=== PATIENT | female | born 1960 | race Caucasian/White ===

== ENCOUNTER → 2022-10-01 | Outpatient (CLI) | payer OTHER, MEDICAID ==
--- NOTE | 2022-10-01 15:55 | Diagnostic Imaging Report ---
INDICATION: PAIN IN RT KNEE COMPARISON: None. FINDINGS: Multiple radiographic views of the right knee joint demonstrate no acute fracture or dislocation. No focal osseous lesions are seen. No significant joint effusion is seen. Moderate osteoarthritic changes are noted and consistent of tricompartmental joint space narrowing with osteophyte formations. There is also mild lateral subluxation of the proximal tibia in respect to the distal femur. The surrounding soft tissue structures are unremarkable. There are no radiopaque foreign bodies. IMPRESSION: 1. No acute fractures or dislocations of the right knee joint. 2. Moderate osteoarthritic changes. Dictated by: Dictated on workstation # [id number]
== END ==
LOC: ORTHO 10:05
PROVIDERS: ATTEND Orthopaedic Surgery
DX: M17.11 Unilateral primary osteoarthritis, right knee (principal)
CPT/HCPCS: 73564; G0463; 99213

== ENCOUNTER 2022-10-22 07:10 | Outpatient (CLI) | payer OTHER, MEDICAID ==
[~2022-10-22] VITALS: Ht 170.2 cm; Wt 118.2 kg
--- NOTE | 2022-10-22 09:07 | Diagnostic Imaging Report ---
CLINICAL INDICATION: Preop chest x-ray. Total knee replacement. EXAM: Chest x-ray PA and lateral views. COMPARISON: None. FINDINGS: Lungs/pleura: Lungs are clear. There is no pneumothorax. There is no pleural effusion. Mediastinum: Unremarkable. Pulmonary vasculature: Unremarkable. Heart: Unremarkable. Bones/extrathoracic soft tissue: There are degenerative spurs involving the thoracic spine. IMPRESSION: There is no radiographic evidence of acute cardiopulmonary process. Dictated by: Dictated on workstation # [id number]
[2022-10-22 09:52] LABS: BASOPHILS % (AUTO) 1 % (0-10); EOSINOPHILS # (AUTO) 0.3 10^3/uL (0.0-0.3); EOSINOPHILS % (AUTO) 3 % (0-10); HEMATOCRIT 43 % (35-52); HEMOGLOBIN 14.6 g/dL (11.5-16.0); LYMPHOCYTES % (AUTO) 25 % (12-44); MEAN CORPUSCULAR HEMOGLOBIN 33 pg (25-34); MEAN CORPUSCULAR HGB CONC 34 g/dL (32-36); MEAN CORPUSCULAR VOLUME 96 fL (80-99); MEAN PLATELET VOLUME 9.8 fL (9.0-12.2); MONOCYTES # (AUTO) 0.7 10^3/uL (0.0-1.0); MONOCYTES % (AUTO) 9 % (0-12); NEUTROPHILS # (AUTO) 5.1 10^3/uL (1.8-7.8); NEUTROPHILS % (AUTO) 62 % (42-75); PLATELET COUNT 204 10^3/uL (130-400); WHITE BLOOD COUNT 8.2 10^3/uL (4.3-11.0)
[2022-10-22 09:54] LABS: BILIRUBIN,URINE NEGATIVE (NEGATIVE); CLARITY,URINE CLEAR; COLOR,URINE YELLOW; GLUCOSE, URINE (UA) NEGATIVE (NEGATIVE); KETONES,URINE NEGATIVE (NEGATIVE); LEUKOCYTE ESTERASE ,URINE TRACE (NEGATIVE); NITRITE,URINE NEGATIVE (NEGATIVE); PROTEIN,URINE NEGATIVE (NEGATIVE)
[2022-10-22 10:05] LABS: BACTERIA,URINE TRACE /HPF; SQUAMOUS EPITHELIAL CELL,UR 0-2 /HPF; WBC,URINE 0-2 /HPF
[2022-10-22] MEDS ORDERED: CETI5TAB6 PO (10:07)
[2022-10-22] MEDS ORDERED: METH2.5T PO (10:07)
[2022-10-22] MEDS ORDERED: TOCI162D SQ (10:07)
[2022-10-22] MEDS ORDERED: METF-478 PO (10:07)
[2022-10-22] MEDS ORDERED: MELO15TA39 PO (10:07)
[2022-10-22] MEDS ORDERED: UBID1CAP53 PO (10:07)
[2022-10-22] MEDS ORDERED: DOCU-163 PO (10:07)
[2022-10-22] MEDS ORDERED: LOSA25TA41 PO (10:07)
[2022-10-22] MEDS ORDERED: OMEG100032 PO (10:07)
[2022-10-22] MEDS ORDERED: OMEP20CA18 PO (10:07)
[2022-10-22 10:08] VITALS: BP 132/6
[2022-10-22 10:15] LABS: POTASSIUM 4.1 MMOL/L (3.6-5.0)
[2022-10-22 10:20] LABS: CREATININE SERUM 0.71 MG/DL (0.60-1.30)
== END 2022-10-22 10:15 ==
LOC: PREOP 07:10
PROVIDERS: ATTEND Orthopaedic Surgery
DX: M17.11 Unilateral primary osteoarthritis, right knee (principal)
CPT/HCPCS: 36415; 71046; 80048; 81000; 85025; 87081; 93005

== ENCOUNTER → 2022-10-22 | Outpatient (CLI) | payer OTHER, MEDICAID ==
[~2022-10-22] MED LIST: CETI5TAB6 PO; DOCU-163 PO; LOSA25TA41 PO; MELO15TA39 PO; METF-478 PO; METH2.5T PO; OMEG100032 PO; OMEP20CA18 PO; TOCI162D SQ; UBID1CAP53 PO
== END ==
LOC: ORTHO 08:18
PROVIDERS: ATTEND Orthopaedic Surgery
DX: M17.11 Unilateral primary osteoarthritis, right knee (principal)

== ENCOUNTER 2022-11-03 07:43 | Day surgery (SDC) | payer OTHER, MEDICAID ==
[~2022-11-03] VITALS: Ht 170.2 cm; Wt 118.2 kg
[2022-11-03] VITALS (11 sets, daily range): BP systolic 126–170; BP diastolic 60–90
[2022-11-03] MEDS ORDERED: ceFAZolin INJECTION 2,000 MG in NS (IVPB) 50 ML IV ONE (08:00)
[2022-11-03] MEDS ORDERED: SODIUM CHLORIDE 0.9% IRRIGATIO 150 ML, TRANEXAMIC ACID INJECTION 3,000 MG IR ONE ×2 (08:00)
[2022-11-03] MEDS: LACTATED RINGERS 1,000 ML IV PRN ×3 (08:33→13:16)
[2022-11-03] MEDS ORDERED: fentaNYL INJ 100 MCG/2 ML AMP ONE (09:23)
[2022-11-03] MEDS ORDERED: MIDAZOLAM 2 MG/2 ML (VERSED) VIAL ONE (09:23)
[2022-11-03] MEDS ORDERED: LIDOCAINE PF 2% 5 ML (XYLOCAINE) VIAL ONE (09:23)
[2022-11-03] MEDS ORDERED: ROPIVACAINE 5MG/ML 30ML VIAL ONE ×2 (09:23→11:08)
[2022-11-03] MEDS ORDERED: proPOfol 200 MG/20 ML (DIPRIVAN) VIAL IV ONE (09:23)
[2022-11-03] MEDS ORDERED: TRANEXAMIC ACID 100 MG/ML 10 ML INJECTION ONE (10:45)
[2022-11-03] MEDS ORDERED: ROCURONIUM 50 MG/5 ML (ZEMURON) VIAL IV ONE ×2 (11:03→12:08)
[2022-11-03] MEDS ORDERED: ONDANSETRON 4 MG/2 ML (SDV) Z0FRAN ONE (11:08)
[2022-11-03] MEDS ORDERED: HYDROCORTISONE 100 MG/2 ML (Solu-CORTEF) VIAL ONE (11:09)
[2022-11-03] MEDS ORDERED: HYDROmorphone 2 MG/ML VIAL (DILAUDID) ONE ×2 (11:09→13:41)
[2022-11-03] MEDS ORDERED: KETOROLAC 30 MG/ML VIAL ONE (13:12)
[2022-11-03] MEDS ORDERED: SEVOFLURANE (ULTANE) 15 ML INHAL SOLN ONE (13:20)
--- NOTE | 2022-11-03 13:38 | Operative Report - Ortho ---
Operative Report Surgeon (s)/Residential Youth Counselor (s) Surgeon BETTY PORTILLO MD Residential Youth Counselor n/a Pre-Operative Diagnosis Right Knee Primary Osteoarthritis Post-Operative Diagnosis same Operative Report Date of Procedure: Nov 03, 2022 Name of Procedure Performed: Right Total Knee Arthroplasty Description & Findings After obtaining informed consent and marking the patient in the preoperative holding area, the patient did receive IV antibiotics. Patient was taken to the operating room and anesthesia was induced. Surgical timeout was taken. The right lower extremity was prepped and draped in the usual sterile fashion. Incision was made and carried down to fascia. Arthrotomy was performed on the medial side of the patella. Patella was retracted laterally and knee was flexed. Found to have circumferential osteophtye around the distal femur as well as exposed bone in the medial compartment. Hole was made in the distal femur for the intramedullary distal femoral cutting guide. Resection was made then the femur was sized as a 3. 4-in-1 block for a size [address]. Anterior cut was made and there was no notch. Posterior cut was made followed by the chamfers. Box cut was performed. Lug holes were drilled. Attention was turned to the tibial side, extramedullary tibial guide was put into place and aligned with the tibial crest. It was set to take 2 mm off of the affected lateral side. Drop digna was used to confirm alignment. Resection was made and was parallel to the joint line. Tibial bone block was removed. Lamina med surg rn was put into place and the menisci and posterior osteophytes were removed. The knee was trialed with a size 3 femur and a size 3 tibia with a 9 mm poly trial. It was found to come out to less than full extension and flexed beyond 120 degrees. It was stable to varus and valgus stress throughout its range of motion. This was not accepted. Distal femoral resection was performed again to remove an additional 2 mm and the chamfers were recut. Knee was once again trialed and found to be in full extension with the other parameters remaining the same. Knee was brought out into extension and the patella was measured at less than 20 mm of thickness. Osteophytes were removed from around the perimeter of the patella. Trial implants were removed. Tibial tray was pinned and punched. The cut bone surfaces were lavaged with pulsatile normal saline. Implants were opened and assembled on the back table. Cement was mixed. Cement was applied to the cut bone surface as well as the implant surface. A size 3 tibial component was impacted into placed and excess cement was removed using a [place]. A size 3 femoral component was impacted into place and excess cement was removed using a [place]. Tibial tray was lavaged with saline. A 9 mm thick polyethylene component was locked into placed and the locking mechanism was checked. Knee was brought into extension. The knee was irrigated with normal saline. Irrigation was removed and tranexamic acid was placed. Dilute betadine soak was performed and the knee was irrigated. Once the cement had set, the knee was once again trialed; found to come to full extension, flexed beyond 120 degrees, and was stable to varus and valgus stress. Further tranexamic acid was applied for hemostasis. Tourniquet was dropped and electrocautery was used for further hemostasis. Fascial layer was closed with #2 Stratafix. The subcutaneous layer was closed with 2-0 Vicryl. The skin was closed with carrie. Wound was dressed with xeroform, 4x4s, ABD, webril, and NHUNG wrap. Patient tolerated the procedure well and was stable to the recovery r oom. Anesthesia Type General plus Regional Estimated Blood Loss ~150 mL Specimen(s) collected/removed None BETTY PORTILLO MD Nov 03, 2022 13:38
[2022-11-03] MEDS ORDERED: ONDANSETRON 4 MG/2 ML (SDV) Z0FRAN IVP PRN (13:45)
[2022-11-03] MEDS ORDERED: morphine INJ 4 MG/ML 1 ML (VIAL/SYRINGE) IVP PRN (13:45)
[2022-11-03] MEDS ORDERED: MILK OF MAGNESIA 400 MG/5 ML 30 ML UDC PO PRN (13:45)
[2022-11-03] MEDS ORDERED: BISACODYL 5 MG (DULCOLAX) TABLET PO PRN (13:45)
[2022-11-03] MEDS ORDERED: HYDROmorphone 2 MG/ML VIAL (DILAUDID) IV ONE (13:45)
--- NOTE | 2022-11-03 14:19 | Diagnostic Imaging Report ---
INDICATION: Right knee surgery. FINDINGS: AP and lateral views of the right knee reveal total right knee arthroplasty with moderate amount of gas and fluid in the adjacent tissues. Prosthetic components appear to be well aligned. There is no evidence of acute osseous complication. IMPRESSION: No evidence of immediate complication post recent total right knee arthroplasty. Dictated by: Dictated on workstation # [id number]
--- NOTE | 2022-11-03 15:10 | Physical Therapy Evaluation ---
PT Evaluation-General Medical Diagnosis Admission Date Nov 03, 2022 at 07:48 Medical Diagnosis: right knee osteoarthritis Onset Date: Nov 03, 2022 Therapy Diagnosis Therapy Diagnosis: impaired mobility Precautions Precautions/Isolations: Standard Precautions Weight Bear Status Right Lower Extremity: Right Weight Bearing/Tolerated Left Lower Extremity: Left Full Weight Bearing Referral Physician: Priyanka Reason for Referral: Evaluation/Treatment Medical History Current History s/p elective right TKR Reviewed History: Yes Social History Home: Single Level Current Living Status: Spouse Prior Prior Level of Function SCALE: Activities may be completed with or without assistive devices. 3-Efkogfcrcx-lfhqurs completes the activity by him/herself with no assistance from a helper. 5-Set-up or Clean-up Assistance-helper sets up or cleans up; patient completes activity. [place] assists only prior to or following the activity. 4-Supervision or Touching Assistance-helper provides verbal cues and/or touching/steadying and/or contact guard assistance as patient completes activity. Assistance may be provided throughout the activity or intermittently. 3-Partial/Moderate Assistance-helper does LESS THAN HALF the effort. [place] li fts, holds or supports trunk or limbs, but provides less than half the effort. 2-Substantial/Maximal Assistance-helper does MORE THAN HALF the effort. [place] lifts or holds trunk or limbs and provides more than half the effort. 0-Accspqekw-oaoyhv does ALL the effort. Patient does none of the effort to complete the activity. Or, the assistance of 2 or more helpers is required for the patient to complete the activity. If activity was not attempted, code reason: 7-Patient Refused. 9-Not Applicable-not attempted and the patient did not perform the activity before the current illness, exacerbation or injury. 10-Not Attempted due to Environmental Limitations-(lack of equipment, weather restraints, etc.). 88-Not Attempted due to Medical Conditions or Safety Concerns. Bed Mobility: 6 Transfers (B,C,W/C): 6 Gait: 6 Stairs: 6 Indoor Mobility (Ambulation): Independent Stairs: Independent Prior Devices Use: None PT Evaluation-Current Subjective Patient agrees to PT. Pain Numeric Pain Scale: 5-Moderate Pain Location: Right Location Body Site: Knee Pain Description: Acute Objective Patient Orientation: Normal For Age Attachments: [place]go Catheter, Polar Pack, IV ROM/Strength ROM Lower Extremities right knee flexion 60 degrees/10 degrees extension left LE WFL Strength Lower Extremities left LE 4/5 grossly;right LE 3/5 grossly Integumentary/Posture Bladder Incontinence: Hidalgo Cath Posture WFL Neuromuscular (Tone, Coordination, Reflexes) grossly intact Sensory Vision: Functional Hearing: Functional Transfers Sit to Lying (QC): 3 Lying to Sitting/Side of Bed(Q: 3 Sit to Stand (QC): 88 Gait Does the Patient Walk?: No and Walking Goal IS indicated Balance Sitting Static: Fair Sitting Dynamic: Fair Assessment/Needs Patient became nauseated during PT and vomited. Patient sat EOB for a few mi nutes then returned with needs met. PT to increase activity as tolerated by patient. Rehab Potential: Fair PT Fdc Goals Marketing Writer Goals PT Marketing Writer Goals Time Frame: Nov 08, 2022 Roll Left & Right (QC): 6 Sit to Lying (QC): 6 Lying-Sitting on Side/Bed(QC): 6 Sit to Stand (QC): 6 Chair/Seq-kk-Dffzh Xfer(QC): 6 Toilet Transfer (QC): 6 Walk 10 feet (QC): 6 Walk 50ft with 2 Turns (QC): 6 Walk 150 ft (QC): 6 PT Plan Problem List Problem List: Activity Tolerance, Balance, Gait, Transfer, Bed Mobility, ROM Treatment/Plan Treatment Plan: Continue Plan of Care Treatment Plan: Bed Mobility, Education, Functional Activity Deisi, Functional Strength, Gait, Safety, Therapeutic Exercise, Transfers Treatment Duration: Nov 08, 2022 Frequency: 11 times per week Estimated Hrs Per Day: .5 hour per day Patient and/or Family Agrees t: Yes Time Time In: 1445 Time Out: 1502 DATE: Nov 03, 2022 Total Billed Treatment Time: 17 Total Billed Treatment 1 visit [facility] 17 min CHEY MCHUGH PT Nov 03, 2022 15:10
[2022-11-03] MEDS: NS IV 1000 ML 1,000 ML IV SCH (15:55)
[2022-11-03] MEDS: ASPIRIN E.C. 81 MG (ECOTRIN) TAB PO SCH (17:05)
--- NOTE | 2022-11-03 18:01 | Consultation ---
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 Currently she is doing better with her pain and nausea has passed. I have reviewed her home meds. She brought her CPAP machine to use. We will monitor O2 and BP closely. Source: patient, RN/MD Exam Limitations: no limitations Date Seen 11/03/22 Attending Physician No,Local Physician PCP Admitting Physician: Damon Mathew MD Attending Physician: Damon Mathew MD Referring Physician Date of Admission Nov 03, 2022 at 07:48 Home Medications & Allergies Home Medications Reviewed patient Home Medication Reconciliation performed by pharmacy medication reconciliations survey and mapping technician and/or nursing. Patients Allergies have been reviewed. Allergies Allergies Coded Allergies Sulfa (Sulfonamide Antibiotics) (Unverified Allergy, Severe, Rash, 10/22/22) adhesive tape (Unverified Allergy, Intermediate, Rash, 10/22/22) Past Yfdpbha-Zublla-Xhdjjs Hx Past Med/Social Hx: Reviewed Nursing Past Med/Soc Hx, Reviewed and Corrections made Patient Social History Marrital Status: Employed/Student: retired Alcohol Use: Rarely Uses Recreational Drug Use: No Smoking Status: Never a Smoker 2nd Hand Smoke Exposure: No Recent Foreign Travel: No Contact w/other who traveled: No Recent Hopitalizations: No Immunizations Up To Date Date of Influenza Vaccine: Aug 22, 2022 Seasonal Allergies Seasonal Allergies: Yes Past Medical History Surgeries: Breast, Gallbladder, Orthopedic, Tonsillectomy Respiratory: Sleep Apnea Currently Using CPAP: Yes Currently Using BIPAP: No Cardiac: High Cholesterol, Hypertension Sexually Transmitted Disease: No HIV/AIDS: No Female Reproductive Disorders: Denies Hysterectomy Gastrointestinal: Gastroesophageal Reflux Musculoskeletal: Arthritis Cancer: Breast What Type of Treatment Did You: Chemotherapy, Surgical Intervention Psychosocial: Anxiety History of Blood Disorders: Yes Review of Systems Constitutional: see HPI, malaise, weakness EENTM: no symptoms reported Respiratory: no symptoms reported Cardiovascular: no symptoms reported Gastrointestinal: nausea Genitourinary: no symptoms reported Musculoskeletal: back pain, joint pain Skin: no symptoms reported Psychiatric/Neurological: No Symptoms Reported All Other Systems Reviewed Negative Unless Noted: Yes Physical Exam Physical Exam Vital Signs Vital Signs - First Documented 11/03/22 07:50 Temp 36.7 Pulse 116 Resp 22 B/P (MAP) 146/71 (96) O2 Delivery Room Air Capillary Refill : Less Than 3 Seconds Height, Weight, BMI Height: '" Weight: lbs. oz. kg; 40.80 BMI Method: General Appearance: No Apparent Distress, WD/WN, Chronically ill, Obese Eyes: Bilateral Eye Normal Inspection, Bilateral Eye PERRL HEENT: PERRL/EOMI, Normal ENT Inspection, Pharynx Normal Neck: Full Range of Motion, Normal Inspection, Non Tender, Supple, Carotid Bruit Respiratory: Chest Non Tender, Lungs Clear, Normal Breath Sounds, No Accessory Muscle Use, No Respiratory Distress Cardiovascular: Regular Rate, Rhythm, No Edema, No Gallop, No JVD, No Murmur, Normal Peripheral Pulses Gastrointestinal: Normal Bowel Sounds, No Organomegaly, No Pulsatile Mass, Non Tender, Soft Back: Normal Inspection, No CVA Tenderness, No Vertebral Tenderness Extremity: Normal Capillary Refill, Normal Inspection, Normal Range of Motion (except right leg), Non Tender, No Calf Tenderness, No Pedal Edema Neurologic/Psychiatric: Alert, Oriented x3, No Motor/Sensory Deficits, Normal Mood/Affect Skin: Normal Color, Warm/Dry Lymphatic: No Adenopathy Results Results/Procedures Labs Patient resulted labs reviewed. Assessment/Plan Assessment and Plan Assess & Plan/Chief Complaint Assessment: s/p right knee replacement POD # 0 Obesity RA LEONIDES on CPAP Plan: Monitor labs O2 monitoring Home CPAP use Diagnosis/Problems Diagnosis/Problems (1) Primary osteoarthritis of right knee MARYBETH TUCKER DO Nov 03, 2022 18:01
[2022-11-03] MEDS ORDERED: ceFAZolin INJECTION 2,000 MG in NS (IVPB) 50 ML IV SCH (21:00)
[2022-11-03] MEDS: DOCUSATE SODIUM 100 MG (COLACE) CAP PO SCH (21:52)
[2022-11-03] MEDS: ceFAZolin INJECTION 2,000 MG in NS (IVPB) 50 ML IV SCH (21:52)
[2022-11-04] MEDS: NS IV 1000 ML 1,000 ML IV SCH ×2 (02:37→02:39)
[2022-11-04 03:43] VITALS: BP 122/79
--- NOTE | 2022-11-04 05:15 | Progress Note ---
Subjective Date Seen by a Provider: Nov 04, 2022 Time Seen by a Provider: 09:00 Subjective/Events-last exam Pt is doing really well Up in chair Pain is pretty well controlled Reviewed meds and labs Review of Systems General: Fatigue Musculoskeletal: leg pain Objective Exam Last Set of Vital Signs Vital Signs Date Time Temp Pulse Resp B/P (MAP) Pulse Ox O2 Delivery O2 Flow Rate FiO2 11/04/22 03:43 36.3 74 20 122/79 (93) 98 Room Air 11/03/22 20:07 2.00 Capillary Refill : Less Than 3 Seconds I&O Intake and Output 11/04/22 00:00 Intake Total 3060 ml Output Total 1150 ml Balance 1910 ml Intake Oral 960 ml IV Total 2100 ml Output Urine Total 1150 ml General: Alert, Oriented X3, Cooperative, No Acute Distress Lungs: Clear to Auscultation, Normal Air Movement Heart: Regular Rate, Normal S1, Normal S2, No Murmurs Psych/Mental Status: Mental Status NL, Mood NL Results Lab Laboratory Tests 11/03/22 08:31: Glucometer 120H Assessment/Plan Assessment/Plan Assess & Plan/Chief Complaint Assessment: s/p right knee replacement POD # 1 Obesity RA LEONIDES on CPAP Plan: Monitor labs O2 monitoring Home CPAP use Diagnosis/Problems Diagnosis/Problems (1) Primary osteoarthritis of right knee MARYBETH TUCKER DO Nov 04, 2022 05:15
[2022-11-04] MEDS: ceFAZolin INJECTION 2,000 MG in NS (IVPB) 50 ML IV SCH (05:49)
[2022-11-04] MEDS: MULTIVIT W/MINERALS TAB (THERAGRAN M) PO SCH (05:50)
[2022-11-04] MEDS: ACETAMINOPHEN 500 MG TAB (TYLENOL) PO PRN ×2 (05:53→12:54)
[2022-11-04 06:45] LABS: BASOPHILS % (AUTO) 0 % (0-10); EOSINOPHILS % (AUTO) 0 % (0-10); HEMATOCRIT 37 % (35-52); HEMOGLOBIN 12.2 g/dL (11.5-16.0); LYMPHOCYTES # (AUTO) 1.7 10^3/uL (1.0-4.0); LYMPHOCYTES % (AUTO) 11 % (12-44); MEAN CORPUSCULAR HEMOGLOBIN 33 pg (25-34); MEAN CORPUSCULAR HGB CONC 33 g/dL (32-36); MEAN CORPUSCULAR VOLUME 99 fL (80-99); MEAN PLATELET VOLUME 10.6 fL (9.0-12.2); MONOCYTES # (AUTO) 1.3 10^3/uL (0.0-1.0); MONOCYTES % (AUTO) 9 % (0-12); NEUTROPHILS # (AUTO) 12.2 10^3/uL (1.8-7.8); NEUTROPHILS % (AUTO) 80 % (42-75); PLATELET COUNT 172 10^3/uL (130-400); WHITE BLOOD COUNT 15.3 10^3/uL (4.3-11.0)
[2022-11-04 07:12] LABS: BAND NEUTROPHILS 1 %; LYMPHOCYTES % (MANUAL) 11 %; MONOCYTES % (MANUAL) 8 %; NEUTROPHILS % (MANUAL) 78 %
[2022-11-04 07:13] LABS: RBC MORPH NORMAL; REACTIVE LYMPHOCYTES 2 %
[2022-11-04 07:25] VITALS: BP 136/64
[2022-11-04 07:25] LABS: ALBUMIN 3.4 GM/DL (3.2-4.5); BILIRUBIN,TOTAL 0.4 MG/DL (0.1-1.0); CREATININE SERUM 0.65 MG/DL (0.60-1.30); POTASSIUM 3.9 MMOL/L (3.6-5.0); TOTAL PROTEIN 5.4 GM/DL (6.4-8.2)
[2022-11-04] MEDS: DOCUSATE SODIUM 100 MG (COLACE) CAP PO SCH ×2 (08:13→20:56)
[2022-11-04] MEDS: PANTOPRAZOLE 20 MG TABLET (PROTONIX) PO SCH (08:13)
[2022-11-04] MEDS: ASPIRIN E.C. 81 MG (ECOTRIN) TAB PO SCH ×2 (08:13→17:26)
[2022-11-04] MEDS: LOSARTAN 25 MG (COZAAR) TAB PO SCH (08:13)
[2022-11-04] MEDS: MELOXICAM 7.5 MG (MOBIC) TABLET PO SCH (08:14)
[2022-11-04] MEDS ORDERED: OMEPRAZOLE 20 MG (PriLOSEC) CAP NON-FORMULARY PO SCH (09:00)
--- NOTE | 2022-11-04 09:02 | Progress Note - Ortho ---
Progress Note Subjective Date of Exam 11/04/22 Chief Complaint POD #1 R TKA HPI/Events since last exam doing well, pain controlled, good start with therapy Review of Systems - Allergies: Coded Allergies: Sulfa (Sulfonamide Antibiotics) (Unverified Allergy, Severe, Rash, 10/22/22) adhesive tape (Unverified Allergy, Intermediate, Rash, 10/22/22) Home Meds Reported Medications Docusate Sodium (Dulcolax Stool Softener) 100 Mg Capsule, 100 MG PO DAILY, CAP 10/22/22 Cetirizine HCl (Cetirizine HCl) 5 Mg Tablet, 5 MG PO DAILY, TAB 10/22/22 Stevenson-3/Dha/Epa/Fish Oil (Fish Oil 1,000 mg Softgel) 1,000 Mg (120 Mg-180 Mg) Capsule, 1000 MG PO, CAP 10/22/22 Ubidecarenone/Vit E Acetate (Co Q-10 100 mg Softgel) 100 Mg-5 Unit Capsule, 1 EACH PO DAILY, CAP 10/22/22 Omeprazole (Omeprazole) 20 Mg Capsule.dr, 20 MG PO DAILY, CAP 10/22/22 Methotrexate Sodium (Methotrexate) 2.5 Mg Tablet, 2.5 MG PO DAILY, TAB 10/22/22 Metformin HCl (Metformin HCl ER) 500 Mg Tab.er.24, 500 MG PO DAILY, TAB 10/22/22 Meloxicam (Meloxicam) 15 Mg Tablet, 15 MG PO DAILY, TAB 10/22/22 Losartan Potassium (Losartan Potassium) 25 Mg Tablet, 25 MG PO DAILY, TAB 10/22/22 Tocilizumab (Actemra) 162 Mg/0.9 Ml Syringe, 162 MG SQ WEEK, EACH 10/22/22 Objective Exam R Knee: Dressing C/D/I, + DF of ankle, no s/s of DVT Vital Signs Vital Signs Date Time Temp Pulse Resp B/P (MAP) Pulse Ox O2 Delivery O2 Flow Rate FiO2 11/04/22 07:45 Room Air 0.00 11/04/22 07:25 36.4 76 20 136/64 (88) 99 Room Air 11/04/22 03:43 36.3 74 20 122/79 (93) 98 Room Air 11/03/22 23:57 36.2 87 20 126/60 (82) 96 NIV CPAP 11/03/22 21:53 36.9 11/03/22 20:07 36.9 85 16 133/60 (84) 96 Nasal Cannula 2.00 11/03/22 20:07 36.9 85 16 133/60 (84) 96 Nasal Cannula 2.00 11/03/22 20:00 Nasal Cannula 3.00 11/03/22 18:47 98 Nasal Cannula 3.00 11/03/22 16:13 36.1 77 16 139/63 (88) 97 Nasal Cannula 3.00 11/03/22 14:30 36.5 75 20 153/79 (103) 95 Nasal Cannula 3.00 11/03/22 14:30 Nasal Cannula 3.00 11/03/22 14:30 36.6 20 162/82 (108) 94 Nasal Cannula 2.00 11/03/22 14:30 Nasal Cannula 3.00 11/03/22 14:20 20 165/78 (107) 94 Nasal Cannula 3.00 11/03/22 14:15 OxyMask 2.00 11/03/22 14:10 20 165/90 (115) 96 OxyMask 3.00 11/03/22 14:00 OxyMask 5.00 11/03/22 14:00 20 165/90 (115) 96 OxyMask 10.00 11/03/22 13:50 20 153/89 (110) 95 OxyMask 10.00 11/03/22 13:45 OxyMask 10.00 11/03/22 13:40 20 158/80 (106) 95 OxyMask 10.00 11/03/22 13:31 OxyMask 10.00 11/03/22 13:31 36.6 20 170/80 (110) 98 OxyMask 10.00 I & O 11/04/22 07:00 Intake Total 4260 ml Output Total 2050 ml Balance 2210 ml Lab Results Laboratory Tests 11/04/22 05:53: White Blood Count 15.3H, Red Blood Count 3.71L, Hemoglobin 12.2, Hematocrit 37, Mean Corpuscular Volume 99, Mean Corpuscular Hemoglobin 33, Mean Corpuscular Hemoglobin Concent 33, Red Cell Distribution Width 12.8, Platelet Count 172, Mean Platelet Volume 10.6, Immature Granulocyte % (Auto) 1, Neutrophils (%) (Auto) 80H, Lymphocytes (%) (Auto) 11L, Monocytes (%) (Auto) 9, Eosinophils (%) (Auto) 0, Basophils (%) (Auto) 0, Neutrophils # (Auto) 12.2H, Lymphocytes # (Auto) 1.7, Monocytes # (Auto) 1.3H, Eosinophils # (Auto) 0.0, Basophils # (Auto) 0.0, Immature Granulocyte # (Auto) 0.1, Neutrophils % (Manual) 78, Lymphocytes % (Manual) 11, Monocytes % (Manual) 8, Band Neutrophils 1, Reactive Lymphocytes 2, Blood Morphology Comment NORMAL, Sodium Level 140, Potassium Level 3.9, Chloride Level 108H, Carbon Dioxide Level 26, Anion Gap 6, Blood Urea Nitrogen 11, Creatinine 0.65, Estimat Glomerular Filtration Rate 101, BUN/Creatinine Ratio 17, Glucose Level 118H, Calcium Level 8.0L, Corrected Calcium 8.5, Total Bilirubin 0.4, Aspartate Amino Transf (AST/SGOT) 21, Alanine Aminotransferase (ALT/SGPT) 30, Alkaline Phosphatase 48, Total Protein 5.4L, Albumin 3.4 Microbiology 11/03/22 MRSA Screen - Final, Complete MRSA not isolated Imaging 2 postop views of the right knee dated 11/03/22 were reviewed from PACS and demonstrated total knee components to be in good position without complication Assessment and Plan Assessment Right Knee Primary Osteoarthritis s/p R TKA Problem List Right Knee Primary Osteoarthritis s/p R TKA Plan PT/OT DVT Prophylaxis Home with home health tomorrow Final Diagonsis Right Knee Primary Osteoarthritis s/p R TKA Level of the visit: Level 3 (global) BETTY PORTILLO MD Nov 04, 2022 09:02
--- NOTE | 2022-11-04 09:58 | Occupational Therapy Eval ---
OT Evaluation-General/PLF Medical Diagnosis Admission Date Nov 03, 2022 at 07:48 Medical Diagnosis: right knee osteoarthritis/TKR Onset Date: Nov 03, 2022 Therapy Diagnosis Therapy Diagnosis: Decreased ADL skills Precautions Precautions/Isolations: Fall Prevention, Standard Precautions Weight Bear Status Weight Bearing Restriction: Weight Bearing/Tolerated Referral Physician: Priyanka Referral Reason: Activity Tolerance, Self Care, Evaluation/Treatment, Strengthening/ROM Medical History Pertinent Medical History: Rheumatoid Arthritis Additional Medical History Left TKR Current History Elective right knee Reviewed History: Yes Social History Home: Single Level Current Living Status: Spouse ADL-Prior Level of Function SCALE: Activities may be completed with or without assistive devices. 5-Gmsaoaxguq-hrbirfy completes the activity by him/herself with no assistance from a helper. 5-Set-up or Clean-up Assistance-helper sets up or cleans up; patient completes activity. [place] assists only prior to or following the activity. 4-Supervision or Touching Assistance-helper provides verbal cues and/or touching/steadying and/or contact guard assistance as patient completes activity. Assistance may be provided throughout the activity or intermittently. 3-Partial/Moderate Assistance-helper does LESS THAN HALF the effort. [place] lifts, holds or supports trunk or limbs, but provides less than half the effort. 2-Substantial/Maximal Assistance-helper does MORE THAN HALF the effort. [place] lifts or holds trunk or limbs and provides more than half the effort. 7-Sexrkhtrp-alzkig does ALL the effort. Patient does none of the effort to complete the activity. Or, the assistance of 2 or more helpers is required for the patient to complete the activity. If activity was not attempted, code reason: 7-Patient Refused. 9-Not Applicable-not attempted and the patient did not perform the activity before the current illness, exacerbation or injury. 10-Not Attempted due to Environmental Limitations-(lack of equipment, weather restraints, etc.). 88-Not Attempted due to Medical Conditions or Safety Concerns. ADL PLOF Comments Pt. fully independent with daily skills. Does not use AE. Self Care: Independent Functional Cognition: Independent DME/Equipment: Bath Chair, Shower, Sock Aid DME/Equipment Comments Pt. has a shower chair, walker, and sock aide from prior knee surgery. 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 indicates that her knee is stiff with movement, but does not state a pain level. Appearance Pt. up in chair. Alert and oriented. Mental Status/Objective Patient Orientation: Person, Place, Time, Situation Attachments: IV Current Glasses/Contacts: Yes Upper Extremity ROM WFL ADL-Treatment Eating (QC): 6 (per pt.) Oral Hygiene (QC): 5 (Set up at sink in bathroom. Pt. stood to cleanse and reapply dentures.) Toileting Hygiene (QC): 6 (Pt. able to toilet self independently.) Other Treatments OT order received, chart reviewed. Spoke with pt. in depth. Pt. had other knee completed and has equipment at home. She has assist as needed from her spouse and granddaughter. Pt. stood from chair with SBA and ambulated into bathroom. OT assisted due to IV, but pt. could have done so by herself. She was able to toilet and happy to urinate, as she had had catheter removed. Pt. transferred from toilet with independence and stood at sink to wash hands and dentures. Pt. returned to chair. All needs met. Pt. states that she is aware of AE and possible needs. She has sock aide at home and assist as needed. Did not want to practice at this time. No further OT needed at this time. Education OT Patient Education: Correct positioning, Modified ADL techniques, Progress toward Goal/Update tx plan, Purpose of tx/functional activities, Reviewed precautions, Rehab process, Transfer techniques Teaching Recipient: Patient Teaching Methods: Demonstration, Discussion Response to Teaching: Verbalize Understanding, Return Demonstration OT Fci Goals Fci Goals Time Frame: Nov 04, 2022 Eating (QC): 6 Oral Hygiene (QC): 6 Toileting Hygiene (QC): 6 Pt. able to transfer and complete toileting/grooming task independently with assist for IV pole. Pt. has equipment from previous knee surgery, assist at home, and knowledge from her current job. She does not feel like she needs OT training at this time. Additional Goals: 1-Demonstrate ADL Tasks, 2-Verbalize Understanding 1=Demonstrate adherence to instructed precautions during ADL tasks. 2=Patient will verbalize/demonstrate understanding of assistive devices/modifications for ADL. 3=Patient will improve strength/tolerance for activity to enable patient to perform ADL's. OT Education/Plan Problem List/Assessment Assessment: No Skilled OT Needs ID'd Discharge Recommendations Plan/Recommendations: Discharge/Goals Met Treatment Plan/Plan of Care Patient would benefit from OT for education, treatment and training to promote independence in ADL's, mobility, safety and/or upper extremity function for ADL's. Plan of Care: OTHER Treatment Duration: Nov 04, 2022 Frequency: 1 time per week Rehab Potential: Fair Time Start Time: 09:05 Stop Time: 09:22 DATE: Nov 04, 2022 Total Time Billed (hr/min): 17 Billed Treatment Time 1, EVL x 17minutes Discharge OT services at this time. KRYSTAL ARTEAGA OT Nov 04, 2022 09:58
--- NOTE | 2022-11-04 10:27 | Physical Therapy Daily Note ---
PT Daily Note-Current Subjective Patient agrees to PT. Pain Numeric Pain Scale: 2 Location: Right Location Body Site: Knee Pain Description: Acute Section J - Health Conditions 1. Rarely or not at all 2. Occasionally 3. Frequently 4. Almost constantly 8. Unable to answer Pain Effect on Sleep: 2 Pain Interference with Therapy: 2 Pain Interference w/Day-to-Day: 2 Mental Status Patient Orientation: Normal For Age Attachments: IV Transfers SCALE: Activities may be completed with or without assistive devices. 5-Wipcrdthmn-ckzfces completes the activity by him/herself with no assistance from a helper. 5-Set-up or Clean-up Assistance-helper sets up or cleans up; patient completes activity. [place] assists only prior to or following the activity. 4-Supervision or Touching Assistance-helper provides verbal cues and/or touching/steadying and/or contact guard assistance as patient completes activity. Assistance may be provided throughout the activity or intermittently. 3-Partial/Moderate Assistance-helper does LESS THAN HALF the effort. [place] lifts, holds or supports trunk or limbs, but provides less than half the effort. 2-Substantial/Maximal Assistance-helper does MORE THAN HALF the effort. [place] lifts or holds trunk or limbs and provides more than half the effort. 5-Ofhtozgdp-vfdbta does ALL the effort. Patient does none of the effort to complete the activity. Or, the assistance of 2 or more helpers is required for the patient to complete the activity. If activity was not attempted, code reason: 7-Patient Refused. 9-Not Applicable-not attempted and the patient did not perform the activity before the current illness, exacerbation or injury. 10-Not Attempted due to Environmental Limitations-(lack of equipment, weather restraints, etc.). 88-Not Attempted due to Medical Conditions or Safety Concerns. Lying to Sitting/Side of Bed(Q: 4 Sit to Stand (QC): 4 Chair/Rbs-mw-Bjies Xfer(QC): 4 Weight Bearing Right Lower Extremity: Right Weight Bearing/Tolerated Left Lower Extremity: Left Full Weight Bearing Gait Training Distance: 225' Walk 10 feet (QC): 4 Walk 50 ft with 2 Turns(QC): 4 Walk 150 ft (QC): 4 Gait Assistive Device: FWW steady, antalgic gait sequence Exercises Supine Ex: Ankle pumps, Quad Set, Heel Slides, Straight leg raise Supine Reps: 12 Seated Therapy Exercises: Long arc quads Seated Reps: 15 Assessment Patient tolerated treatment well and is up in recliner with needs met. PT to increase activity and right knee ROM as tolerated by patient. Plan dismissal tomorrow after PT. PT Group Home Goals Administrative Services Manager Goals PT Administrative Services Manager Goals Time Frame: Nov 08, 2022 Roll Left & Right (QC): 6 Sit to Lying (QC): 6 Lying-Sitting on Side/Bed(QC): 6 Sit to Stand (QC): 6 Chair/Zbv-vz-Rsvsv Xfer(QC): 6 Toilet Transfer (QC): 6 Walk 10 feet (QC): 6 Walk 50ft with 2 Turns (QC): 6 Walk 150 ft (QC): 6 PT Plan Treatment/Plan Treatment Plan: Continue Plan of Care Treatment Plan: Bed Mobility, Education, Functional Activity Deisi, Functional Strength, Gait, Safety, Therapeutic Exercise, Transfers Treatment Duration: Nov 08, 2022 Frequency: 11 times per week Estimated Hrs Per Day: .5 hour per day Patient and/or Family Agrees t: Yes Time Time In: 754 Time Out: 817 DATE: Nov 04, 2022 Total Billed Treatment Time: 23 Total Billed Treatment 1 visit EX 14 min GT 9 min CHEY MCHUGH PT Nov 04, 2022 10:27
[2022-11-04 11:13] VITALS: BP 134/60
[2022-11-04] MEDS: ONDANSETRON 4 MG/2 ML (SDV) Z0FRAN IV PRN ×2 (12:58→20:58)
--- NOTE | 2022-11-04 14:01 | Physical Therapy Daily Note ---
PT Daily Note-Current Subjective Patient agrees to PT. Pain Section J - Health Conditions 1. Rarely or not at all 2. Occasionally 3. Frequently 4. Almost constantly 8. Unable to answer Pain Effect on Sleep: 2 Pain Interference with Therapy: 2 Pain Interference w/Day-to-Day: 2 Mental Status Patient Orientation: Normal For Age Transfers SCALE: Activities may be completed with or without assistive devices. 9-Hifatlpjek-jmsdhpl completes the activity by him/herself with no assistance from a helper. 5-Set-up or Clean-up Assistance-helper sets up or cleans up; patient completes activity. [place] assists only prior to or following the activity. 4-Supervision or Touching Assistance-helper provides verbal cues and/or touching/steadying and/or contact guard assistance as patient completes activity. Assistance may be provided throughout the activity or intermittently. 3-Partial/Moderate Assistance-helper does LESS THAN HALF the effort. [place] lifts, holds or supports trunk or limbs, but provides less than half the effort. 2-Substantial/Maximal Assistance-helper does MORE THAN HALF the effort. [place] lifts or holds trunk or limbs and provides more than half the effort. 1-Rfdktzivm-nczzul does ALL the effort. Patient does none of the effort to complete the activity. Or, the assistance of 2 or more helpers is required for the patient to complete the activity. If activity was not attempted, code reason: 7-Patient Refused. 9-Not Applicable-not attempted and the patient did not perform the activity before the current illness, exacerbation or injury. 10-Not Attempted due to Environmental Limitations-(lack of equipment, weather restraints, etc.). 88-Not Attempted due to Medical Conditions or Safety Concerns. Sit to Stand (QC): 5 Weight Bearing Right Lower Extremity: Right Weight Bearing/Tolerated Left Lower Extremity: Left Full Weight Bearing Gait Training Distance: 400' Walk 10 feet (QC): 5 Walk 50 ft with 2 Turns(QC): 5 Walk 150 ft (QC): 5 Gait Assistive Device: FWW slow, antalgic, functional gait sequence Exercises Supine Ex: Ankle pumps, Quad Set, Heel Slides Supine Reps: 15 (in recliner with bilateral LE elevated) Seated Therapy Exercises: Ankle pumps, Long arc quads Seated Reps: 15 Assessment Patient tolerated treatment well and remains up in recliner. Patient progressing with treatment plan. PT Ch[facility] Goals Chcf Goals PT [facility] Goals Time Frame: Nov 08, 2022 Roll Left & Right (QC): 6 Sit to Lying (QC): 6 Lying-Sitting on Side/Bed(QC): 6 Sit to Stand (QC): 6 Chair/Vde-yv-Cakgw Xfer(QC): 6 Toilet Transfer (QC): 6 Walk 10 feet (QC): 6 Walk 50ft with 2 Turns (QC): 6 Walk 150 ft (QC): 6 PT Plan Treatment/Plan Treatment Plan: Continue Plan of Care Treatment Plan: Bed Mobility, Education, Functional Activity Deisi, Functional Strength, Gait, Safety, Therapeutic Exercise, Transfers Treatment Duration: Nov 08, 2022 Frequency: 11 times per week Estimated Hrs Per Day: .5 hour per day Patient and/or Family Agrees t: Yes Time Time In: 1306 Time Out: 1330 DATE: Nov 04, 2022 Total Billed Treatment Time: 24 Total Billed Treatment 1 visit GT 10 min EX 14 min CHEY MCHUGH PT Nov 04, 2022 14:01
--- NOTE | 2022-11-04 14:10 | Anesthesia-General Post-Op ---
General Patient Condition Mental Status/LOC: Same as Preop Cardiovascular: Satisfactory Nausea/Vomiting: Absent Respiratory: Satisfactory Pain: Controlled Complications: Absent Post Op Complications Complications None Follow Up Care/Instructions Patient Instructions None needed. Anesthesia/Patient Condition Patient Condition Patient is doing well, no complaints, stable vital signs, no apparent adverse anesthesia problems. No complications reported per nursing. BETTY CHAUDHARY CRNA Nov 04, 2022 14:10
[2022-11-04 15:13] VITALS: BP 133/60
[2022-11-04 19:19] VITALS: BP 155/70
[2022-11-04 23:41] VITALS: BP 148/76
[2022-11-05 03:24] VITALS: BP 146/77
[2022-11-05 05:45] LABS: BASOPHILS % (AUTO) 0 % (0-10); EOSINOPHILS # (AUTO) 0.1 10^3/uL (0.0-0.3); EOSINOPHILS % (AUTO) 1 % (0-10); HEMATOCRIT 37 % (35-52); HEMOGLOBIN 12.3 g/dL (11.5-16.0); LYMPHOCYTES # (AUTO) 2.1 10^3/uL (1.0-4.0); LYMPHOCYTES % (AUTO) 20 % (12-44); MEAN CORPUSCULAR HEMOGLOBIN 33 pg (25-34); MEAN CORPUSCULAR HGB CONC 33 g/dL (32-36); MEAN CORPUSCULAR VOLUME 98 fL (80-99); MEAN PLATELET VOLUME 10.4 fL (9.0-12.2); MONOCYTES # (AUTO) 0.8 10^3/uL (0.0-1.0); MONOCYTES % (AUTO) 8 % (0-12); NEUTROPHILS # (AUTO) 7.6 10^3/uL (1.8-7.8); NEUTROPHILS % (AUTO) 71 % (42-75); PLATELET COUNT 145 10^3/uL (130-400); WHITE BLOOD COUNT 10.7 10^3/uL (4.3-11.0)
[2022-11-05 06:15] LABS: ALBUMIN 3.6 GM/DL (3.2-4.5); BILIRUBIN,TOTAL 0.5 MG/DL (0.1-1.0); CALCIUM 8.4 MG/DL (8.5-10.1); CREATININE SERUM 0.64 MG/DL (0.60-1.30); POTASSIUM 3.8 MMOL/L (3.6-5.0); TOTAL PROTEIN 5.8 GM/DL (6.4-8.2)
--- NOTE | 2022-11-05 07:00 | Progress Note ---
Subjective Date Seen by a Provider: Nov 05, 2022 Time Seen by a Provider: 09:00 Subjective/Events-last exam Pt is doing really well No other concerns Ready for discharge today Checked meds and labs Review of Systems General: Fatigue Musculoskeletal: leg pain Objective Exam Last Set of Vital Signs Vital Signs Date Time Temp Pulse Resp B/P (MAP) Pulse Ox O2 Delivery O2 Flow Rate FiO2 11/05/22 03:24 36.0 87 18 146/77 (100) 96 Room Air 11/04/22 07:45 0.00 Capillary Refill : Less Than 3 Seconds I&O Intake and Output 11/05/22 00:00 Intake Total 2910 ml Output Total 900 ml Balance 2010 ml Intake Oral 1310 ml IV Total 1600 ml Output Urine Total 900 ml # Voids 7 # Bowel Movements 2 General: Alert, Oriented X3, Cooperative, No Acute Distress Psych/Mental Status: Mental Status NL, Mood NL Results Lab Laboratory Tests 11/05/22 05:19: White Blood Count 10.7, Red Blood Count 3.78L, Hemoglobin 12.3, Hematocrit 37, Mean Corpuscular Volume 98, Mean Corpuscular Hemoglobin 33, Mean Corpuscular Hemoglobin Concent 33, Red Cell Distribution Width 12.9, Platelet Count 145, Mean Platelet Volume 10.4, Immature Granulocyte % (Auto) 1, Neutrophils (%) (Auto) 71, Lymphocytes (%) (Auto) 20, Monocytes (%) (Auto) 8, Eosinophils (%) (Auto) 1, Basophils (%) (Auto) 0, Neutrophils # (Auto) 7.6, Lymphocytes # (Auto) 2.1, Monocytes # (Auto) 0.8, Eosinophils # (Auto) 0.1, Basophils # (Auto) 0.0, Immature Granulocyte # (Auto) 0.1, Sodium Level 141, Potassium Level 3.8, Chloride Level 109H, Carbon Dioxide Level 26, Anion Gap 6, Blood Urea Nitrogen 10, Creatinine 0.64, Estimat Glomerular Filtration Rate 101, BUN/Creatinine Ratio 16, Glucose Level 127H, Calcium Level 8.4L, Corrected Calcium 8.7, Total Bilirubin 0.5, Aspartate Amino Transf (AST/SGOT) 21, Alanine Aminotransferase (ALT/SGPT) 26, Alkaline Phosphatase 47, Total Protein 5.8L, Albumin 3.6 Microbiology 11/03/22 MRSA Screen - Final, Complete MRSA not isolated Assessment/Plan Assessment/Plan Assess & Plan/Chief Complaint Assessment: s/p right knee replacement POD # 2 Obesity RA LEONIDES on CPAP Plan: Monitor labs O2 monitoring Home CPAP use DC Diagnosis/Problems Diagnosis/Problems (1) Primary osteoarthritis of right knee MARYBETH TUCKER DO Nov 05, 2022 07:00
[2022-11-05 07:21] VITALS: BP 126/59
[2022-11-05] MEDS: MULTIVIT W/MINERALS TAB (THERAGRAN M) PO SCH (07:34)
[2022-11-05] MEDS: ASPIRIN E.C. 81 MG (ECOTRIN) TAB PO SCH (08:45)
[2022-11-05] MEDS: LOSARTAN 25 MG (COZAAR) TAB PO SCH (08:45)
[2022-11-05] MEDS: PANTOPRAZOLE 20 MG TABLET (PROTONIX) PO SCH (08:45)
[2022-11-05] MEDS: DOCUSATE SODIUM 100 MG (COLACE) CAP PO SCH (08:45)
[2022-11-05] MEDS: MELOXICAM 7.5 MG (MOBIC) TABLET PO SCH (08:50)
[2022-11-05] MEDS ORDERED: ASPI-1238 PO (09:01)
[2022-11-05] MEDS ORDERED: OXC5T PO (09:01)
--- NOTE | 2022-11-05 09:05 | Discharge Summary ---
Discharge Summary Hospital Course Problems/Dx: (1) Primary osteoarthritis of right knee Hospital Course Date of Admission: Nov 03, 2022 at 07:48 Admission Diagnosis : Right Knee Primary Osteoarthritis Family Physician/Provider: Timothy Hansen Physician Date of Discharge: 11/05/22 Discharge Diagnosis: [ Right Knee Primary Osteoarthritis s/p TKA] Hospital Course: [Admitted on 11/03/22 and went to the operating room for right TKA. Tolerated the procedure well and was transferred to the regular floor. On the day of surgery, she was started on mechnical DVT prophylaxis and began in room therapy. On POD #1, she began chemical DVT prophylaxis and began to ambulate. Pain was controlled with oral medication. On POD #2, she was progressing well with therapy. Pain was controlled with oral medication and she was tolerating a regular diet. Discharge arrangements had been made. She was ready for discharge home. ] Labs and Pending Lab Test: Laboratory Tests 11/05/22 05:19: White Blood Count 10.7, Red Blood Count 3.78L, Hemoglobin 12.3, Hematocrit 37, Mean Corpuscular Volume 98, Mean Corpuscular Hemoglobin 33, Mean Corpuscular Hemoglobin Concent 33, Red Cell Distribution Width 12.9, Platelet Count 145, Mean Platelet Volume 10.4, Immature Granulocyte % (Auto) 1, Neutrophils (%) (Auto) 71, Lymphocytes (%) (Auto) 20, Monocytes (%) (Auto) 8, Eosinophils (%) (Auto) 1, Basophils (%) (Auto) 0, Neutrophils # (Auto) 7.6, Lymphocytes # (Auto) 2.1, Monocytes # (Auto) 0.8, Eosinophils # (Auto) 0.1, Basophils # (Auto) 0.0, Immature Granulocyte # (Auto) 0.1, Sodium Level 141, Potassium Level 3.8, Chloride Level 109H, Carbon Dioxide Level 26, Anion Gap 6, Blood Urea Nitrogen 10, Creatinine 0.64, Estimat Glomerular Filtration Rate 101, BUN/Creatinine Ratio 16, Glucose Level 127H, Calcium Level 8.4L, Corrected Calcium 8.7, Total Bilirubin 0.5, Aspartate Amino Transf (AST/SGOT) 21, Alanine Aminotransferase (ALT/SGPT) 26, Alkaline Phosphatase 47, Total Protein 5.8L, Albumin 3.6 Microbiology 11/03/22 MRSA Screen - Final, Complete MRSA not isolated Home Meds Active Aspirin EC (Aspirin) 81 Mg Tablet. 81 Mg PO BID WITH MEALS 14 Days Reported Dulcolax Stool Softener (Docusate Sodium) 100 Mg Capsule 100 Mg PO DAILY Cetirizine HCl 5 Mg Tablet 5 Mg PO DAILY Fish Oil 1,000 mg Softgel ([place]-3/Dha/Epa/Fish Oil) 1,000 Mg (120 Mg-180 Mg) Capsule 1,000 Mg PO Co Q-10 100 mg Softgel (Ubidecarenone/Vit E Acetate) 100 Mg-5 Unit Capsule 1 Each PO DAILY Omeprazole 20 Mg Capsule.dr 20 Mg PO DAILY Methotrexate (Methotrexate Sodium) 2.5 Mg Tablet 2.5 Mg PO DAILY Metformin HCl ER (Metformin HCl) 500 Mg Tab.er.24 500 Mg PO DAILY Meloxicam 15 Mg Tablet 15 Mg PO DAILY Losartan Potassium 25 Mg Tablet 25 Mg PO DAILY Actemra (Tocilizumab) 162 Mg/0.9 Ml Syringe 162 Mg SQ WEEK Assessment/Pt Instructions WBAT on right lower extremity, dry dressing daily to incision site, use walker for assistance, maintain follow up on 11/[address] Mathew, do not restart methotrexate until after follow up appointment Discharge Instructions Discharge Diet: Regular Diet Discharge Physical Examination Vital Signs Vital Signs Date Time Temp Pulse Resp B/P (MAP) Pulse Ox O2 Delivery O2 Flow Rate FiO2 11/05/22 08:13 Room Air 11/05/22 07:21 36.7 90 20 126/59 (81) 98 11/04/22 07:45 0.00 Extremity: Other (Right Knee: Incision C/D/I, +DF of ankle, no s/s of DVT) Allergies: Coded Allergies: Sulfa (Sulfonamide Antibiotics) (Unverified Allergy, Severe, Rash, 10/22/22) adhesive tape (Unverified Allergy, Intermediate, Rash, 10/22/22) Discharge Summary Date of Admission Nov 03, 2022 at 07:48 Date of Discharge Discharge Diagnosis (1) Primary osteoarthritis of right knee BETTY MATHEW MD Nov 05, 2022 09:05
--- NOTE | 2022-11-05 09:07 | D/C HH Face to Face Order ---
D/C Face to Face Orders Instructions for Patient Via [facility], Patient Instructions/FollowUp: Follow up on 11/25 in office. Do not restart methotrexate until after followup. WBAT on right leg with walker. Dry dressing daily to incision site. Physician to follow Patient: Damon Mathew Discharge Diet for Home: Regular Diet Patient Data-Allergies,Ht & Wt Patient Allergies: Coded Allergies: Sulfa (Sulfonamide Antibiotics) (Unverified Allergy, Severe, Rash, 10/22/22) adhesive tape (Unverified Allergy, Intermediate, Rash, 10/22/22) Home Health Need/Face to Face Date of Face to Face: Nov 05, 2022 Clinical Findings: Muscle weakness, Pain with ambulation I have seen Pt [id number]: Yes Discharged To: Home Diagnosis/Conditions: Right Knee Primary Osteoarthritis s/p TKA Patient is Homebound due to: Muscle weakness, Pain w/ambulation Homebound Status Due to the above stated illness, injury or surgical procedure (medical condition or diagnosis) and associated clinical findings, the patient is homebound because of his/her inability to leave home except with aid of a supportive device and/or person AND leaving the home requires a considerable and taxing effort or is medically contraindicated. Pt req the following assistanc: Walker Home Health Nursing Orders Home Health Services Order: Physical Therapy-Evaluate & Treat Home Health Infusion Therapy Line Start Date: Nov 03, 2022 Therapy Orders Therapy Specific Orders: Gait training, Increase strength/endurance, Restore ROM Certify Stmt I certify that this patient is under my care and that I, a nurse practitioner or a physician; a assistant corporate controller working with me, had a face to face encounter that - meets the physician face to face encounter requirements with this patient as dated. DAMON MATHEW MD Nov 05, 2022 09:07
--- NOTE | 2022-11-05 09:38 | Physical Therapy Daily Note ---
PT Daily Note-Current Subjective Patient in recliner pre tx, agrees to PT, has no pain at rest. Pain Section J - Health Conditions 1. Rarely or not at all 2. Occasionally 3. Frequently 4. Almost constantly 8. Unable to answer Pain Effect on Sleep: 2 Pain Interference with Therapy: 2 Pain Interference w/Day-to-Day: 2 Appearance Patient in recliner post tx with nurse call, phone, tray, all needs met. Mental Status Patient Orientation: Person, Place, Situation Transfers SCALE: Activities may be completed with or without assistive devices. 5-Soofjsvgpv-qjxrnve completes the activity by him/herself with no assistance from a helper. 5-Set-up or Clean-up Assistance-helper sets up or cleans up; patient completes activity. [place] assists only prior to or following the activity. 4-Supervision or Touching Assistance-helper provides verbal cues and/or touching/steadying and/or contact guard assistance as patient completes activity. Assistance may be provided throughout the activity or intermittently. 3-Partial/Moderate Assistance-helper does LESS THAN HALF the effort. [place] lifts, holds or supports trunk or limbs, but provides less than half the effort. 2-Substantial/Maximal Assistance-helper does MORE THAN HALF the effort. [place] lifts or holds trunk or limbs and provides more than half the effort. 0-Jcygnegec-mxcbxv does ALL the effort. Patient does none of the effort to complete the activity. Or, the assistance of 2 or more helpers is required for the patient to complete the activity. If activity was not attempted, code reason: 7-Patient Refused. 9-Not Applicable-not attempted and the patient did not perform the activity before the current illness, exacerbation or injury. 10-Not Attempted due to Environmental Limitations-(lack of equipment, weather restraints, etc.). 88-Not Attempted due to Medical Conditions or Safety Concerns. Sit to Stand (QC): 4 Chair/Jcz-qr-Iglkz Xfer(QC): 4 Weight Bearing Right Lower Extremity: Right Weight Bearing/Tolerated Left Lower Extremity: Left Full Weight Bearing Gait Training Distance: 200' Walk 10 feet (QC): 4 Walk 50 ft with 2 Turns(QC): 4 Walk 150 ft (QC): 4 Gait Persons Needed: 1 Gait Assistive Device: FWW SBA, slow, antalgic ambulation, fair step through gait pattern Exercises Supine Ex: Quad Set Supine Reps: 15 (done in recliner with legs elevated) Seated Therapy Exercises: Ankle pumps, Long arc quads, Hamstring Curls Seated Reps: 15 Treatments transfers, ambulation, ROM Assessment Current Status: Fair Progress good progress PT Shelter Goals Shelter Goals 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 Time Frame: Nov 08, 2022 Roll Left & Right (QC): 6 Sit to Lying (QC): 6 Lying-Sitting on Side/Bed(QC): 6 Sit to Stand (QC): 6 Chair/Tlj-xm-Sbect Xfer(QC): 6 Toilet Transfer (QC): 6 Walk 10 feet (QC): 6 Walk 50ft with 2 Turns (QC): 6 Walk 150 ft (QC): 6 PT Plan Problem List Problem List: Activity Tolerance, Functional Strength, Safety, Balance, Gait, Transfer, Bed Mobility, ROM Treatment/Plan Treatment Plan: Continue Plan of Care Treatment Plan: Bed Mobility, Education, Functional Activity Deisi, Functional Strength, Gait, Safety, Therapeutic Exercise, Transfers Treatment Duration: Nov 08, 2022 Frequency: 11 times per week Estimated Hrs Per Day: .5 hour per day Patient and/or Family Agrees t: Yes Safety Risks/Education Patient Education: Gait Training, Transfer Techniques, Correct Positioning, Safety Issues Teaching Recipient: Patient Teaching Methods: Demonstration, Discussion Response to Teaching: Reinforcement Needed Time Time In: 905 Time Out: 916 DATE: Nov 05, 2022 Total Billed Treatment Time: 11 Total Billed Treatment 1 visit FA 11' LORRIE SUMNER PT Nov 05, 2022 09:38
== END 2022-11-05 12:40 | disposition home or self-care (01) ==
LOC: SDC 07:43 → SURG 07:48 → UNDOADMIN 07:48 → SURG 15:07 → 4TH 15:07 → UNDODISIN 11-05 12:40 → SDC 11-05 12:40
PROVIDERS: ATTEND Orthopaedic Surgery
DX: M17.11 Unilateral primary osteoarthritis, right knee (principal); E66.9 Obesity, unspecified; M06.9 Rheumatoid arthritis, unspecified; G47.33 Obstructive sleep apnea (adult) (pediatric); K21.9 Gastro-esophageal reflux disease without esophagitis; I10 Essential (primary) hypertension; Z79.899 Other long term (current) drug therapy; Z85.3 Personal history of malignant neoplasm of breast; Z68.41 Body mass index [BMI] 40.0-44.9, adult
CPT/HCPCS: 36415; 73560; 80053; 82947; 85007; 85025; 85027; 87081; 94664

== ENCOUNTER → 2022-11-25 | Outpatient (CLI) | payer OTHER, MEDICAID ==
[~2022-11-25] MED LIST changes: +ASPI-1238 PO; +OXC5T PO
== END ==
LOC: ORTHO 14:19
PROVIDERS: ATTEND Orthopaedic Surgery
DX: Z47.89 Encounter for other orthopedic aftercare (principal)

== ENCOUNTER → 2022-12-17 | Outpatient (CLI) | payer OTHER, MEDICAID ==
--- NOTE | 2022-12-17 12:45 | Diagnostic Imaging Report ---
HISTORY: Followup right knee arthroplasty. TECHNIQUE: Two views of the right knee. COMPARISON: 11/03/2022. 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 No hardware complication is seen. Alignment is normal. There is a small right knee joint effusion. Multiple joint bodies are seen. IMPRESSION: 1. Right knee arthroplasty with no hardware complication seen. 2. Small right knee joint effusion with multiple joint bodies. Dictated by: Dictated on workstation # [id number]
== END ==
LOC: ORTHO 09:26
PROVIDERS: ATTEND Orthopaedic Surgery
DX: Z47.89 Encounter for other orthopedic aftercare (principal); E11.9 Type 2 diabetes mellitus without complications
CPT/HCPCS: 73560

== ENCOUNTER → 2023-01-28 | Outpatient (CLI) | payer OTHER, MEDICAID | LOC: ORTHO 08:53 | PROVIDERS: ATTEND Orthopaedic Surgery | DX: Z47.89 Encounter for other orthopedic aftercare (principal) ==